=== PATIENT | female | born 1995 | race American Indian/Alaskan Native ===

== ENCOUNTER 2017-06-21 11:23 | Emergency (ER) | payer OTHER ==
[2017-06-21 11:52] VITALS: BP 138/91
--- NOTE | 2017-06-21 14:33 | Emergency Department Report ---
Blank Doc - Documentation Documentation: Patient is a 21-year-old Aminah female who is presenting with palpitations chest pain is now resolved. Patient states she woke up this morning and she felt her heart racing some sharp chest pains numbness tingling sensation in her arms and legs. Patient states she thought she was having anxiety attack however she doesn't have a history of anxiety. Patient denies any recent heavy caffeine use alcohol drug use. EKG was performed and shows no acute abnormality chest x-ray will be ordered and the patient will be turned over to the P
[2017-06-21 15:26] LABS: HCG Qualitative,Urine Negative (Negative)
[2017-06-21 15:27] LABS: Bacteria,Urine 1+ /HPF (Negative); Bilirubin,Urine NEG (Negative); Blood,Urine NEG (Negative); Color,Urine Yellow (Yellow); Mucus,Urine FEW /HPF; Nitrite,Urine NEG (Negative); Protein,Urine <15 mg/dL mg/dL (Negative); Urobilinogen,Urine < 2.0 mg/dL (<2.0)
--- NOTE | 2017-06-21 16:50 | XRay Report ---
FINAL REPORT PROCEDURE: XR CHEST ROUTINE 2V TECHNIQUE: PA and lateral chest radiographs were obtained. CPT 44381 HISTORY: cough COMPARISON: No prior studies are available for comparison. FINDINGS: Heart: Upper normal size. Mediastinum/Vessels: Normal. Lungs/Pleural space: Normal. Bony thorax: No acute osseous abnormality. Other: IMPRESSION: Heart size upper normal otherwise negative exam..
--- NOTE | 2017-06-21 17:04 | Emergency Department Report ---
HPI - General Chief Complaint: Chest Pain Time Seen by Provider: 06/21/17 14:15 - HPI HPI: 21-year-old -[place] female comes in accompanied concerns for chest pain and palpitations. Patient reports that she woke up this morning and she was having sharp chest pain felt her heart racing and stimuli she is having a panic attack. Patient reports that she has intermittent chest pain has been going on for over 2 years. Patient reports she has not been diagnosed with anxiety. Patient has no past medical history currently takes no medications has no known drug allergies and does not have a primary care provider. ED Past Medical Hx - Past Medical History Additional medical history: heart murmur - Surgical History Past Surgical History?: No - Social History Smoking Status: Current Every Day Smoker Substance Use Type: None ED Review of Systems ROS: Stated complaint: CP/ANXIETY Other details as noted in HPI Constitutional: denies: chills, fever Eyes: denies: eye pain, eye discharge, vision change ENT: denies: ear pain, throat pain Respiratory: denies: cough, shortness of breath, wheezing Cardiovascular: chest pain (that has resolved), palpitations (that has resolved) Endocrine: no symptoms reported Gastrointestinal: denies: abdominal pain, nausea, diarrhea Genitourinary: denies: urgency, dysuria, discharge Musculoskeletal: denies: back pain, joint swelling, arthralgia Skin: denies: rash, lesions Neurological: denies: headache, weakness, paresthesias Psychiatric: denies: anxiety, depression Hematological/Lymphatic: denies: easy bleeding, easy bruising Physical Exam - Physical Exam Vital Signs: Vital Signs 06/21/17 11:49 Temperature 97.9 F Pulse Rate 85 Respiratory 20 Rate Blood Pressure 138/91 O2 Sat by Pulse 100 Oximetry Physical Exam: GENERAL APPEARANCE: Well developed, well nourished, in no acute distress. SKIN: Inspection of the skin reveals no rashes, ulcerations or petechiae. HEENT: The sclerae were anicteric and conjunctivae were pink and moist. Extraocular movements were intact and pupils were equal, round, and reactive to light with normal accommodation. External inspection of the ears and nose showed no scars, lesions, or masses. Lips, teeth, and gums showed normal mucosa. The oral mucosa, hard and soft palate, tongue and posterior pharynx were normal. NECK: Supple and symmetric. There was no thyroid enlargement, and no tenderness , or masses were felt. CHEST: Normal AP diameter and normal contour without any kyphoscoliosis. LUNGS: Auscultation of the lungs revealed normal breath sounds without any other adventitious sounds or rubs. CARDIOVASCULAR: There was a regular rate and rhythm without any murmurs, gallops , rubs. Peripheral pulses were 2+ and symmetric. ABDOMEN: Soft and nontender with normal bowel sounds. T LYMPH NODES: No lymphadenopathy was appreciated in the neck, axillae or groin. MUSCULOSKELETAL: Gait was normal. There was no tenderness or effusions noted. Muscle strength and tone were normal. EXTREMITIES: No cyanosis, clubbing or edema. NEUROLOGIC: Alert and oriented x 3. Normal affect. Gait was normal. Normal deep tendon reflexes with no pathological reflexes. Sensation to touch was normal. ED Course Vital Signs 06/21/17 11:49 Temperature 97.9 F Pulse Rate 85 Respiratory 20 Rate Blood Pressure 138/91 O2 Sat by Pulse 100 Oximetry ED Medical Decision Making - Radiology Data Radiology results: report reviewed, image reviewed Unremarkable chest x-ray - Medical Decision Making Patient's been evaluated by this provider as well as Dr. Payne in fast track. Patient had a EKG which was no acute abnormalities. Patient's examination is unremarkable. Discussed the patient that her studies are within normal limits. Discussed with patient that she needs to follow up with a community provider which I'll refer her to one. Patient verbalized understanding. Critical care attestation.: If time is entered above; I have spent that time in minutes in the direct care of this critically ill patient, excluding procedure time. ED Disposition Clinical Impression: Atypical chest pain Disposition: [id number] TO HOME OR SELFCARE Is pt being admited?: No Does the pt Need Aspirin: No Condition: Stable Instructions: Chest Pain (ED) Additional Instructions: Please follow up with a community provider within 3-5 days for further evaluation. If symptoms persist or gets worse please return to the ER. Referrals: PRIMARY CARE, [Primary Care Provider] - 3-5 Days Forms: Work/School Release Form(ED)
== END 2017-06-21 17:15 | disposition home or self-care (01) ==
LOC: ED 11:23
DX: R07.89 Other chest pain (principal); F17.200 Nicotine dependence, unspecified, uncomplicated
CPT/HCPCS: 71046; 81001; 81025; 93005; 93010